=== PATIENT | female | born 1995 | race Caucasian/White ===

== ENCOUNTER 2022-12-08 17:24 | Outpatient (CLI) | payer SELFPAY ==
--- NOTE | 2022-12-09 15:02 | XRAY Report ---
PROCEDURE: Finger(s) RT INDICATIONS: CRUSHING INJURY OF RIGHT RING FINGER TECHNIQUE: AP hand, 3 views of the third and fourth finger(s) acquired. COMPARISON: None. FINDINGS: Bones: No fractures or dislocations. No suspicious bony lesions. Soft tissues: No suspicious soft tissue calcifications or masses. IMPRESSION: No visualized acute fracture or dislocation. However, occult injury cannot be excluded. Recommend obed rt interval imaging follow-up in 7-10 days as clinically indicated for additional evaluation. Reviewed by: Elli Adamson MD on 12/09/2022 3:01 PM PDT Approved by: Elli Adamson MD on 12/09/2022 3:01 PM PDT Station ID: [id number]
== END 2022-12-08 17:25 | disposition home or self-care (01) ==
LOC: DI 17:24
PROVIDERS: ATTEND Specialist
DX: S67.194A Crushing injury of right ring finger, initial encounter (principal)